=== PATIENT | male | born 1965 | race Caucasian/White ===

== ENCOUNTER 2021-05-08 08:00 | Observation (INO) ==
[2021-05-08] MEDS ORDERED: NITROGLYCERIN SL 0.4 MG TABLET SL PRN (08:45)
[2021-05-08] MEDS ORDERED: ENOXAPARIN 100 MG/ML SYRINGE SUBCUT STA (08:45)
[2021-05-08] MEDS ORDERED: ASPIRIN 325 MG TABLET PO STA (08:45)
[2021-05-08 09:13] LABS: Basophils % 0.7 % (0.0-0.8); Eosinophils # 0.3 10*3/uL (0.0-0.87); Eosinophils % 4.1 % (0.00-10.9); Hematocrit 41.4 VOL% (42.0-52.0); Hemoglobin 13.7 GM/DL (14.0-18.0); Immature Granulocytes % 0.7 %; Immature Granulocytes Absolute 0.04 #; Lymphocytes # 1.5 10*3/uL (1.4-4.0); Lymphocytes % 25.2 % (21.2-54.2); Mean Corpuscular HGB Conc 33.1 GM/DL (32-36); Mean Corpuscular Volume 86.3 FL (87-102); Mean Platelet Volume 9.8 FL (9.6-12.0); Monocytes % 10.1 % (1.7-12.7); Neutrophils % 59.2 % (38.7-73.9); Platelet Count 211 T/CUMM (130-400); Red Cell Distribution Width 13.4 % (9.3-17.3); White Blood Count 6.1 T/CUMM (4-12)
[2021-05-08 09:24] LABS: INR 1.2; PT Patient Result 13.3 SECS (10.5-12.0); Partial Thromboplastin Time 31.3 SECS (23.9-33.8)
[2021-05-08 09:44] LABS: Calcium 8.9 MG/DL (8.5-10.1); Osmolality,Calculated 278.5 MOS/KG (273-304); Potassium 4.2 MMOL/L (3.5-5.1)
[2021-05-08] MEDS ORDERED: ONDANSETRON 4 MG/2 ML VIAL IV PRN (10:46)
[2021-05-08] MEDS ORDERED: ACETAMINOPHEN 325 MG TABLET PO PRN (10:46)
[2021-05-08] MEDS ORDERED: ALUMINUM/MAGNES/SIMETH MAX STR 30 ML UDCUP PO PRN (10:46)
[2021-05-08] MEDS ORDERED: ALBUTEROL 2.5 MG/3 ML NEB RESP TX PRN (10:46)
[2021-05-08] MEDS ORDERED: GLUCAGON 1 MG VIAL IM PRN (10:46)
[2021-05-08] MEDS ORDERED: DEXTROSE 50% 25 GM/50 ML VIAL IV PRN (10:46)
[2021-05-08] MEDS ORDERED: LACTATED RINGERS 1,000 ML IV SCH (11:00)
[2021-05-08 11:20] LABS: Albumin 3.8 G/DL (3.4-5.0); Bilirubin,Direct 0.12 MG/DL (0.0-0.20); Bilirubin,Indirect 1.2 MG/DL (0.0-1.0); Bilirubin,Total 1.3 MG/DL (0.20-1.00); Total Protein 7.2 G/DL (6.4-8.2)
[2021-05-08 14:25] VITALS: BP 128/75
[2021-05-08] MEDS ORDERED: NITROGLYCERIN 2% OINT 1 INCH/GM PACK TOP SCH (18:00)
[2021-05-08] MEDS ORDERED: ENOXAPARIN 150 MG/ML SYRINGE SUBCUT SCH (21:00)
[2021-05-08] MEDS ORDERED: DOCUSATE SODIUM 100 MG CAPSULE PO SCH (21:00)
[2021-05-09] MEDS ORDERED: BISACODYL 5 MG TABLET PO SCH (09:00)
[2021-05-09] MEDS ORDERED: ASPIRIN 325 MG TABLET PO SCH (09:00)
[2021-05-09] MEDS ORDERED: PANTOPRAZOLE 40 MG TABLET PO SCH (09:00)
== END 2021-05-08 13:50 | disposition home or self-care (01) ==
LOC: N.ED 08:00 → N.EDINP 08:00
PROVIDERS: ADMIT Internal Medicine; ATTEND Internal Medicine